=== PATIENT | female | born 1970 | race Caucasian/White ===

== ENCOUNTER 2024-01-16 13:32 | Emergency (ER) | payer BC ==
[~2024-01-16] VITALS: Ht 167.6 cm; Wt 115.8 kg
[2024-01-16] MEDS ORDERED: LEVO112T2 PO (14:01)
[2024-01-16] MEDS ORDERED: MONT-5 PO (14:01)
[2024-01-16] MEDS ORDERED: NEXI40CA PO (14:01)
[2024-01-16] MEDS ORDERED: LEXA1TAB PO (14:01)
[2024-01-16 17:21] VITALS: BP 164/79; TEMP 96.4; O2SAT 100
== END 2024-01-16 18:21 | disposition home or self-care (01) ==
LOC: M ED 13:32
DX: I80.01 Phlebitis and thrombophlebitis of superficial vessels of right lower extremity (principal); F17.200 Nicotine dependence, unspecified, uncomplicated; Z86.711 Personal history of pulmonary embolism; Z86.718 Personal history of other venous thrombosis and embolism; Z79.899 Other long term (current) drug therapy